=== PATIENT | female | born 1995 | race Caucasian/White ===

== ENCOUNTER 2018-07-12 13:27 | Emergency (ER) | payer OTHER ==
[~2018-07-12] VITALS: Ht 160 cm; Wt 60.2 kg
--- NOTE | 2018-07-12 13:59 | NUR ---
LUNCH RN: PT PRESENTING TO ER FOR DIFFICULTY TAKING DEEP BREATH X1 MONTH, TODAY FEELING LIGHTHEADED, USED AT HOME NEB TREATMENTS X3 WITHOUT FEELING IMPROVED. PT SPEAKING IN FULL SENTENCES, CONNECTED TO ALL MONITORING, VSS. SATS 97% ON RA. LABS COLLECTED. EKG BEING DONE BY TECH. MOTHER AT BEDSIDE. CALL LIGHT WITHIN REACH. BLANKET GIVEN FOR COMFORT. AWAITING RESULTS AT THIS TIME.
--- NOTE | 2018-07-12 14:00 | NUR ---
received report from Olga Martinez, assumed care of pt at this time. pt currently in XR.
[2018-07-12 14:14] LABS: BASOPHILS # (AUTO) 0.02 x10^3/uL (0-0.3); BASOPHILS % (AUTO) 0 % (0-1); EOSINOPHILS # (AUTO) 0.08 x10^3/uL (0-0.8); EOSINOPHILS % (AUTO) 1 % (1-7); LYMPHOCYTES # (AUTO) 1.94 x10^3/uL (1-6.1); LYMPHOCYTES % (AUTO) 34 % (22-44); MD NO; MEAN CORPUSCULAR VOLUME 88.5 fL (80-100); MEAN PLATELET VOLUME 8.2 fL (7.4-10.4); MONOCYTES # (AUTO) 0.48 x10^3/uL (0-1.4); MONOCYTES % (AUTO) 9 % (2-9); NEUTROPHILS # (AUTO) 3.13 x10^3/uL (1.8-8.0); NEUTROPHILS % (AUTO) 55 % (42-75); PLATELET COUNT 199 x10^3/uL (130-400); RED BLOOD COUNT 5.04 x10^6/uL (3.82-5.3); RED CELL DISTRIBUTION WIDTH 12.7 % (9.6-15.2)
--- NOTE | 2018-07-12 14:15 | NUR ---
pt returned from XR, upright on gurney awake & comfortable, responds approp to staff, no resp distress noted, comfort measures provided, family at BS, call light within reach.
[2018-07-12 14:26] LABS: ALBUMIN 3.8 g/dL (3.4-5.0); ANION GAP 6 mmol/L (5-15); CALCIUM 9.4 mg/dL (8.5-10.1); CHLORIDE 107 mmol/L (98-107)
[2018-07-12 14:32] LABS: CREATININE 0.92 mg/dL (0.55-1.02)
[2018-07-12 15:05] VITALS: BP 123/78
--- NOTE | 2018-07-12 15:05 | NUR ---
pt remains upright on gurney awake & comfortable, responds approp to staff, no resp distress noted, comfort measures provided, family at BS, call light within reach.
--- NOTE | 2018-07-12 16:06 | NUR ---
Patient given discharge instructions and they have confirmed that they understand the instructions. Patient ambulatory with steady gait.
== END 2018-07-12 16:10 | disposition home or self-care (01) ==
LOC: ED 16:04
DX: R06.00 Dyspnea, unspecified (principal); J45.909 Unspecified asthma, uncomplicated
CPT/HCPCS: 36415; 71046; 80048; 82040; 84703; 85025; 85379; 93005; 99284